=== PATIENT | male | born 1975 ===

== ENCOUNTER 2024-03-02 11:10 | Outpatient (REF) | payer MEDICAID, SELFPAY ==
[2024-03-02 14:44] LABS: Estimated Average Glucose 114 mg/dL; Hemoglobin A1c % 5.6 % (<6.0)
== END 2024-03-02 11:11 | disposition home or self-care (01) ==
LOC: HO.HHCL 11:10
PROVIDERS: Visit Provider Internal Medicine
DX: R73.01 Impaired fasting glucose (principal)
CPT/HCPCS: 36415; 80048; 80061; 82306; 83036; 84443

== ENCOUNTER 2024-03-04 08:40 | Outpatient (REF) | payer MEDICAID, SELFPAY ==
[2024-03-04 12:08] LABS: Anion Gap 8 (12-20); Blood Urea Nitrogen 18 mg/dL (9-16); Calcium 9.3 mg/dL (8.4-10.2); Carbon Dioxide 26 mmol/L (22-29); Chloride 112 mmol/L (96-108); Cholesterol 183 mg/dL (<200); Estimated Glomerular Filt Rate > 60; Glucose Random 104 mg/dL (60-115); HDL Cholesterol 37 mg/dL (>40); LDL Cholesterol Calculated 133 mg/dL (<100); Potassium 4.3 mmol/L (3.3-5.1); Sodium 142 mmol/L (135-145); Triglycerides 69 mg/dL (<150)
[2024-03-04 12:32] LABS: TSH reflex Free T4 1.38 uIU/mL (0.32-4.0); Vitamin D 25-OH Total 24.7 ng/mL (>30)
[2024-03-04 12:53] LABS: Reflex LDLD? No
== END 2024-03-04 08:41 | disposition home or self-care (01) ==
LOC: HO.HHCL 08:40
PROVIDERS: Visit Provider Internal Medicine
DX: I10 Essential (primary) hypertension (principal); R73.01 Impaired fasting glucose
CPT/HCPCS: 36415; 80048; 80061; 82306; 84443

== ENCOUNTER 2024-11-23 08:41 | Outpatient (REF) | payer MEDICAID, SELFPAY ==
--- OUTSIDE RECORDS SUMMARY | 2024-11-23 08:48 | XMS_ITS | Encounter Summary ---
Author Organization [employer] Address [address] [facility] [address] [place] [address] Care Team Providers Care Weed Thinner Name Role Phone Urszula Davis MD Primary Care Provider + Reason for Visit * Reason Comments Med Refill Encounter Details Date Type Department Care Team ([facility] st Contact Info) Description 02/03/2024 Refill [facility] [address] [place], [place] [phone] Urszula Davis MD [address] [place], [place] [phone] Social History Tobacco Use Types Packs/Day Years Used Date Smoking Tobacco: Never Passive Smoke Exposure: Never Smokeless Tobacco: Never Alcohol Use Standard Drinks/Week Comments Never 0 (1 standard drink = 0.6 oz pur e alcohol) Depression Answer Date Recorded Patient Health Questionnaire-9 Score 1 12/09/2023 Patient Health Questionnaire-9 Score 1 12/09/2023 Last PHQ-9: Questionnaire Data Not on file 0 12/09/2023 Housing Stability Answer Date Recorded What is your housing situation today? I have clifford gray 11/28/[address] you li ve. Do you have problems with any of the following? None of the above 11/28/2023 Food Insecurity Answer Date Recorded Within the past 12 months, y ou worried that your food would run out before you got money to buy more: Never True 11/28/2023 Within the past 12 months,th e food you bought just didn't last and you didn't have enough money to get more: Never True Transportation Answer Date Recorded In the past 12 months, has l ack of transportation kept you from medical appts, meetings, work or from getting things needed for daily living? No 11/28/2023 Utilities Answer Date Recorded In the past 12 months, has t he electric, gas, oil or water company threatened to shut off services in your home? No 11/28/2023 Depression Answer Date Recorded Patient Health Questionnaire-2 Score 0 12/09/2023 Sex and Gender Information Value Date Recorded Sex Assigned at Male 04/16/2022 10:32 AM EDT Legal Sex Male 10:32 AM EDT Gender Identity Male 04/16/2022 10:32 AM EDT Sexual Orientation Straight 04/16/2022 10 :32 AM EDT documented as of this encounter Plan of Treatment Upcoming Encounters Date Type Department Care Team (Late st Contact Info) Description 02/08/2025 9:00 AM EDT Office Visit [facility] [address] [place] [address] Urszula Davis MD [address] [place] [address] documented as of this encounter Visit Diagnoses Not on filedocumented in this encounter Additional Health Concerns Assessment Noted Time PHQ-9 Depression Total Score: 1 12/09/19 24 10:23 AM EDT documented as of this encounter Care Teams Weed Thinner Relationship Specialty Start Date End Date Urszula Davis MD [address] [place] [id number] PCP - General Family Medicine 06/04/17 documented as of this encounter
[2024-11-23 12:00] LABS: Alanine Aminotransferase 41 U/L (0-40); Albumin Level 4.3 g/dL (3.5-5.0); Alkaline Phosphatase 98 U/L (39-117); Anion Gap 10 (12-20); Aspartate Amino Transferase 41 U/L (5-37); Bilirubin Direct 0.3 mg/dL (0.0-0.5); Bilirubin Total 0.8 mg/dL (0.0-1.0); Blood Urea Nitrogen 11 mg/dL (9-16); Calcium 9.2 mg/dL (8.4-10.2); Carbon Dioxide 26 mmol/L (22-29); Chloride 110 mmol/L (96-108); Cholesterol 118 mg/dL (<200); Estimated Glomerular Filt Rate > 60; Glucose Random 97 mg/dL (60-115); HDL Cholesterol 32 mg/dL (>40); LDL Cholesterol Calculated 73 mg/dL (<100); Potassium 4.1 mmol/L (3.3-5.1); Sodium 142 mmol/L (135-145); Total Protein 7.7 g/dL (6.5-8.0); Triglycerides 65 mg/dL (<150)
[2024-11-23 12:05] LABS: TSH reflex Free T4 1.32 uIU/mL (0.32-4.0)
[2024-11-23 12:44] LABS: Reflex LDLD? No
== END 2024-11-23 08:42 | disposition home or self-care (01) ==
LOC: HO.HHCL 08:41
PROVIDERS: Visit Provider Internal Medicine
DX: Z68.42 Body mass index [BMI] 45.0-49.9, adult (principal); E66.813 Obesity, class 3; I10 Essential (primary) hypertension
CPT/HCPCS: 36415; 80048; 80061; 80076; 84443

== ENCOUNTER 2025-02-11 10:23 | Outpatient (REF) | payer MEDICAID, SELFPAY ==
--- NOTE | ~2025-02-11 | XR_ITS ---
EXAMINATION: XR LUMBOSACRAL SPINE CLINICAL INFORMATION: worsening LBP COMPARISON: None available. TECHNIQUE: AP and lateral views. FINDINGS: Facet joint hypertrophy at L5-S1 and to a lesser extent L4-5. Multilevel small marginal osteophyte formation and endplate sclerosis throughout the axial skeleton. No acute cortical disruption. No gross malalignment. No lytic or blastic lesions. 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 Electronically signed by: Carlos Milner MD 02/11/2025 10:49 AM EDT
--- OUTSIDE RECORDS SUMMARY | 2025-02-11 09:20 | XMS_ITS | Encounter Summary ---
Author Organization [employer] Address [address] [facility] 7t [place] [address] Care Team Providers Care Building Energy Consultant Name Role Phone Urszula Davis MD Primary Care Provider + Reason for Visit * Reason Comments Back Pain Encounter Details Date Type Department Care Team ([facility] st Contact Info) Description 02/11/2025 9:20 AM EDT Office Visit [facility] [place] [address] [place] [address] Chronic bilateral low back pain with right-sided sciatica (Primary Dx); Chronic bilateral thoracic back pain Social History Tobacco Use Types Packs/Day Years [...] Recorded Patient Health Questionnaire-2 Score 0 12/09/2023 Internet Access Answer Date Recorded Internet Access Q1 Yes 10/20/2024 Internet Access Q2 Not on file 10/20/2024 Sex and Gender Information Value Date Recorded Sex Assigned at Male 04/16/2022 10:32 AM EDT Legal Sex Male 10:32 AM EDT Gender Identity Male 04/16/2022 10:32 AM EDT Sexual Orientation Straight 04/16/2022 10 :32 AM EDT documented as of this encounter Last Filed Vital Signs Vital Sign Reading Time Taken Comments Blood Pressure 148/90 02/11/2025 9:22 AM EDT Pulse 60 02/11/2025 9:22 AM EDT Temperature 36.3 C (97.4 F) 02/11/2025 9:22 AM EDT Respiratory Rate 17 02/11/2025 9:22 AM EDT Oxygen Saturation 99% 02/11/2025 9:22 AM EDT Inhaled Oxygen Concentration - - Weight 140 kg (309 lb 9.6 oz) 02/11/2025 9:22 AM EDT Height - - Body Mass Index 44.42 10/26/2024 2:30 PM EDT documented in this encounter Plan of Treatment Upcoming Encounters Date Type Department Care Team (Late st Contact Info) Description 04/19/2025 9:30 AM EST Office Visit [facility] [address] [place] [address] Octaviano, Danisha, OD [address] [place] [address] documented as of this encounter Procedures Procedure Name Priority Date/Time Associated Diagnosis Comments XR LUMBAR SPINE 2-3 VIEWS Routine 02/11/2025 9:48 AM EDT Chronic bilateral low back pain with right-sided sciatica documented in this encounter Results * XR Lumbar Spine 2-3 Views (02/11/2025 9:48 AM EDT) Anatomical Region Laterality Modality Spine, L-spine Radiographic Marybeth ging 02/11/2025 9:48 AM EDT Narrative 02/11/2025 10:52 AM EDT [address] [address] XRay Report Signed Patient: Gilbert Mendenhall MR# : [id number] : 1975 Acct:[id number] Age/Sex: 49 / M ADM Date: 02/11/25 Loc: [facility] Attending Dr: Aminata Mayorga DO Ordering Physician: Aminata Mayorga DO Date of Service: 02/11/25 Procedure(s): XR lumbar spine 2-3V Accession Number(s): [id number] cc: Aminata Mayorga DO EXAMINATION: XR LUMBOSACRAL SPINE CLINICAL INFORMATION: worsening LBP COMPARISON: None available. TECHNIQUE: AP and lateral views. FINDINGS: Facet joint hypertrophy at L5-S1 and to a lesser extent L4-5. Multilevel small marginal osteophyte formation and endplate sclerosis throughout the axial skeleton. No acute cortical disruption. No gross malalignment. No lytic or blastic lesions. 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 Electronically signed by: Carlos Milner MD 02/11/2025 10:49 AM EDT Dictated By: Carlos Rodriguez MD Signed By: <Electronically signed by Carlos Real MD in OV> 02/11/25 1049 DD/ 0948 TD/TT: 02/11/25 1000 Newspaper Manager: Procedure Note Donotuseinterpreter, Image - 02/11/2025 [facility] [address] [place] [address] XRay Report Signed Patient: Nabil MendenhalloMR# : [id number] : 1975Acct:[id number] Age/Sex: 49 / MADM Date: 02/11/25 Loc: [facility] Attending Dr: Aminata Mayorga DO Ordering Physician: Aminata Mayorga DO Date of Service: 02/11/25 Procedure(s): XR lumbar spine 2-3V Accession Number(s): [id number] cc: Aminata Mayorga DO EXAMINATION: XR LUMBOSACRAL SPINE CLINICAL INFORMATION: worsening LBP COMPARISON: None available. TECHNIQUE: AP and lateral views. FINDINGS: Facet joint hypertrophy at L5-S1 and to a lesser extent L4-5. Multilevel small marginal osteophyte formation and endplate sclerosis throughout the axial skeleton. No acute cortical disruption. No gross malalignment. No lytic or blastic lesions. 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 Electronically signed by: Carlos Milner MD 02/11/2025 10:49 AM EDT RP Dictated By: Carlos Rodriguez MD Signed By: <Electronically signed by Carlos Real MDin OV> 02/11/25 1049 DD/ 0948 TD/TT: 02/11/25 1000 Newspaper Manager: Aminata Mayorga DO IMG XR PROCEDURES Final Resu lt documented in this encounter Visit Diagnoses Diagnosis Chronic bilateral low back pain with right-sided sciatica- Primary Chronic bilateral thoracic back pain documented in this encounter Additional Health Concerns Assessment Noted Time PHQ-9 Depression Total Score: 1 12/09/19 24 10:23 AM EDT documented as of this encounter Care Teams Building Energy Consultant Relationship Specialty Start Date End Date Urszula Davis MD [address] [place] [phone] PCP - General Family Medicine 06/04/17 documented as of this encounter
--- OUTSIDE RECORDS SUMMARY | 2025-02-11 11:43 | XMS_ITS | Encounter Summary ---
Author Organization [employer] Address [address] [facility] 7[address] [place] [address] Care Team Providers Care Software Development Intern Name Role Phone Urszula Davis MD Primary Care Provider + Reason for Visit * Reason Onset Date Comments Med Refill 05/18/2024 Encounter Details Date Type Department Care Team ([facility] st Contact Info) Description 05/18/2024 Telephone [facility] [address] [place], [place] [phone] Urszula Davis MD 230 [place], [place] [phone] Med Refill Social History Tobacco Use Types Packs/Day Years [...] AM EDT documented as of this encounter Miscellaneous Notes * Telephone Encounter - Aminata Moe LPN - 05/18/2024 11:21 AM EST Medication was sent to [facility] #[id number] on 02/18/24 #90 with 1 refill. * Telephone Encounter - Nona Fry - 05/18/2024 11:08 AM EST TC from pt requesting medication refill. Medications needing refill : amLODIPine (Norvasc) 5 MG tablet To be sent to: [id number] - [place], [place] - [address] [place] [address] AT [facility] documented in this encounter Plan of Treatment Upcoming Encounters Date Type Department Care Team (Late st Contact Info) Description 04/19/2025 9:30 AM EST Office Visit [facility] [address] [place] [address] Danisha Brumfield, OD [address] [place] [address] documented as of this encounter Visit Diagnoses Not on filedocumented in this encounter Additional Health Concerns Assessment Noted Time PHQ-9 Depression Total Score: 1 12/09/19 10:23 AM EDT documented as of this encounter Care Teams Software Development Intern Relationship Specialty Start Date End Date Urszula Davis MD [address] [place] [phone] PCP - General Family Medicine 06/04/17 documented as of this encounter
--- OUTSIDE RECORDS SUMMARY | 2025-02-11 11:43 | XMS_ITS | Encounter Summary ---
Author Organization [employer] Address [address] [facility] 7[address] [place] [address] Care Team Providers Care Kiln Furniture Saw Tender Name Role Phone Urszula Davis MD Primary Care Provider + Encounter Details Date Type Department Care Team (Latest Contact Info) Description 02/11/2025 Travel Social History Tobacco Use Types Packs/Day Years [...] Description 04/19/2025 9:30 AM EST Office Visit [facility] [address] [place] [address] Octaviano, Danisha, OD [address] [place] [address] documented as of this encounter Visit Diagnoses Not on filedocumented in this encounter Additional Health Concerns Assessment Noted Time PHQ-9 Depression Total Score: 1 12/09/19 24 10:23 AM EDT documented as of this encounter Care Teams Kiln Furniture Saw Tender Relationship Specialty Start Date End Date Urszula Davis MD [address] [place] [address] PCP - General Family Medicine 06/04/17 documented as of this encounter
--- OUTSIDE RECORDS SUMMARY | 2025-02-11 11:43 | XMS_ITS | Encounter Summary ---
Author Organization [employer] Address [address] [facility] 7t [place] [address] Care Team Providers Care Ventilation Mechanic Name Role Phone Urszula Davis MD Primary Care Provider + Reason for Visit * Reason Comments Med Refill Encounter Details Date Type Department Care Team ([facility] st Contact Info) Description 02/08/2025 Refill [facility] [address] [place], [place] [phone] Urszula Davis MD [address] [place], [place] [phone] Social History Tobacco Use Types Packs/Day Years [...] Description 04/19/2025 9:30 AM EST Office Visit [facility] [address] [place] [address] Octaviano, Danisha, OD [address] [place] [address] documented as of this encounter Visit Diagnoses Not on filedocumented in this encounter Additional Health Concerns Assessment Noted Time PHQ-9 Depression Total Score: 1 12/09/19 24 10:23 AM EDT documented as of this encounter Care Teams Ventilation Mechanic Relationship Specialty Start Date End Date Urszula Davis MD [address] [place] [address] PCP - General Family Medicine 06/04/17 documented as of this encounter
--- OUTSIDE RECORDS SUMMARY | 2025-02-11 11:43 | XMS_ITS | Clinical Summary ---
Author Organization [employer] Address [address] [facility] [address] [place] [address] Care Team Providers Care File Machine Operator Name Role Phone Urszula Davis MD Primary Care Provider + Allergies No known active allergies Medications cetirizine (ZyrTEC) 10 MG tablet Take 10 mg by mouth in the morning. 09/27/19 23 Active fluticasone (Flonase) 50 MCG/ACT nasal spray SHAKE LIQUID AND USE 1 TO 2 SPRAYS IN EACH NOSTRIL EVERY DAY NEEDED 48 g 02/16/20 23 Active ciclopirox (Penlac) 8 % solution Apply topically at bedtime. 6 mL 6 03/02/20 24 Active atorvastatin (Lipitor) 20 MG tablet Take 1 tablet (20 mg) by mouth Once per day. 90 tablet 3 03/13/20 24 025 Active omeprazole (PriLOSEC) [address] capsule TAKE 1 CAPSULE BY MOUTH EVERY DAY 30 MINUTES TO 1 HOUR BEFORE A MEAL 90 capsule 1 09/22/19 25 Active oxybutynin XL (Ditropan-XL) 5 MG 24 hr tablet TAKE 1 TABLET BY MOUTH EVERY DAY 90 tablet 1 09/22/19 25 Active Diclofenac Sodium 1 % gelIndications :Chronic bilateral thoracic back pain APPLY TOPICALLY TO THE AFFECTED AREA DAILY EVERY MORNING AND EVERY NIGHT AT BEDTIME NEEDED 100 g 12/24/19 25 Active clotrimazole-b etamethasone (Lotrisone) cream APPLY TOPICALLY TO THE AFFECTED AREA TWICE DAILY 30 g 12/24/19 25 Active metFORMIN XR (Glucophage-XR ) 750 MG 24 hr tablet TAKE 1 TABLET(750 MG) BY MOUTH WITH THE EVENING MEAL. DO NOT CRUSH, CHEW, OR SPLIT 90 tablet 12/25/19 25 Active amLODIPine (Norvasc) 5 MG tablet TAKE 1 TABLET BY MOUTH EVERY DAY 90 tablet 1 02/11/20 25 Active amLODIPine (Norvasc) 5 MG tablet TAKE 1 TABLET BY MOUTH EVERY DAY 90 tablet 1 08/18/19 25 025 Discontinued Active Problems Problem Noted Date Diagnosed Date Tinea of nail 12/09/2023 Assessment & Plan (03/02/2024 10:42 AM EDT): - on fingernails, seems to be improving on Penlac - continue Penlac to complete 6 months Assessment & Plan (12/09/2023 11:04 AM EDT): Use Penlac lotion daily for at least 3-6m Eczema of hand 12/09/2023 Assessment & Plan (12/09/2023 11:05 AM EDT): Seems to have fungal infection at times when exposed to humidity at work, Wear gloves when in contacts with detergents or other substances. Use lotrisone cream bid May need stronger steroid if not improved, Class 3 severe obesity due t o excess calories with serious comorbidity and body mass index (BMI) of 45.0 to 49.9 in adult 12/09/2023 Assessment & Plan (10/26/2024 4:43 PM EDT): Discussed re weight reduction options including exercise, life style modifications, diet. Recommended to decrease soda and sugary beverage consumption, increase protein intake with meals (at least 1 portion of protein with each meal) to assist with satiety, increase dietary fiber Recommended at least 150 min/week of moderate intensity exercise. Will send a referral to dietitian Advised to use metformin daily, will consider GLP's after he sees dietitian if he does not continue to lose significant amount of weight Assessment & Plan (03/02/2024 10:35 AM EDT): - will increase Metformin to 750 mg per day and f/u in 3 months - gave pt information about weight reduction programs in the area - may be a candidate for Glp-1 meds Assessment & Plan (12/09/2023 1:50 PM EDT): Discussed re weight reduction options including exercise, life style modifications, diet, referral to ehs specialist. She declines referral at this time Discussed re lower calorie intake, increase dietary fiber We discussed re medications including metformin, topiramate, wellbutrin or GLP1 agonists. He agreed to start metformin. Chronic bilateral thoracic back pain 04/15/2023 Assessment & Plan (04/15/2023 10:08 AM EDT): Most likely muscular. Igave Him info re Back pain, apply heat to afected area, use tylenol or Ibuprofen prn. Can use Diclofenac gel bid prn severe pain Re consult prn Encounter for colorectal cancer screening 2022 Tinea pedis of both feet 08/13/2022 Assessment & Plan (03/02/2024 12:02 PM EDT): - worsened by eczema - use Lotrisone cream - advised to use Desitin ointment on top of the cream - favor using cotton socks Assessment & Plan (08/13/2022 10:19 AM EST): Use clotrimazole cream PRN Encounter for preventive health examination 07/19 Assessment & Plan (08/13/2022 10:17 AM EST): Discussed with patient re increase fresh fruit and vegetable intake. Counseled re moderate exercise as tolerated, up to 20min/d Patient feels safe at home. Eye exam PT up to date, next one due October 2022, pt will call to schedule upcoming appointment. CRC screen Pt agreed to be referred to colonoscopy Lipids/FBS Labs are ordered, FU in 4 weeks. Vaccinations agreed to Tdap. Declined influenza and Covid booster Dental visit: Pt to schedule appointment with the dentist. Exercise counseling 08/13/2022 Dietary counseling 08/13/2022 Assessment & Plan (09/24/2022 10:50 AM EDT): Pt would like to lose weight. I gave him information regarding weight reduction program Benign prostatic hyperplasia with urinary obstru ction 08/10/2022 Assessment & Plan (08/13/2022 10:26 AM EST): Pt with intermittent obstructive symptoms, followed by every year. Continue oxybutynin 5 mg for urinary incontinence. Essential hypertension 08/10/2022 Assessment & Plan (10/26/2024 4:41 PM EDT): Better control, continue amlodipine 5 mg. I counseled regarding low-salt diet, weight reduction Will consider to DC amlodipine and switch to another med patient if he continues with leg edema Assessment & Plan (03/02/2024 10:42 AM EDT): - uncontrolled, will continue Amlodipine 5 mg for now - strongly advised about weight reduction - increase exercise and f/u with me in 3-4 months - get labs Assessment & Plan (12/09/2023 11:04 AM EDT): Controlled. Compliant w/meds Continue amlodipine 5mg Counseled re low salt diet/increase moderate physical activity. Check home BP BIW and prn CP/PERKINS/ROSENBERG Non smoking patient. Order labs and fu w me in 3m Assessment & Plan (04/15/2023 10:07 AM EDT): Controlled. Compliant w/meds Continue amlodipine 5mg Counseled re low salt diet/increase moderate physical activity. Check home BP BIW and prn CP/PERKINS/ROSENBERG Non smoking patient. Assessment & Plan (09/24/2022 10:49 AM EDT): BP is at goal Continue amlodipine Counseled re low salt diet/increase moderate physical activity. Check home BP BIW and prn CP/PERKINS/ROSENBERG Non smoking patient. Assessment & Plan (08/13/2022 10:22 AM EST): PT noncompliant with amlodipine. Pt agreed to restart amlodipine 5mg and FU with me with labs in 1 month Counseled re low salt diet/increase moderate physical activity. Check home BP BIW and prn CP/PERKINS/ROSENBERG Non smoking patient. Numbness of hand 08/10/2022 Pain in left arm 08/10/2022 Elevated blood-pressure read ing without diagnosis of hypertension 06/28/2017 IFG (impaired fasting glucose) 06/28/2017 Assessment & Plan (10/26/2024 4:42 PM EDT): We discussed about taking metformin daily will check He agreed to refer to dietitian especially for weight reduction Will check A1c at next visit I have discussed with patient regarding increasing physicial activity and decrease calorie intake FU in 3 m Assessment & Plan (03/02/2024 10:44 AM EDT): I have discussed with patient regarding increasing physicial activity and decrease calorie intake I'll check FBS with next set of labs. To check RBS at next visit. FU with me next visit Will increase Metformin to 750 mg that will also help with weight reduction Assessment & Plan (12/09/2023 1:48 PM EDT): Improved. Encouraged patient to decrease meal portion size, decrease carb intake and increase physical activity. I will start him on Metformin to help with obesity and fu in 2-3m. I d/w him re potential side effects including nausea, diarrhea, dizziness. Assessment & Plan (08/13/2022 10:27 AM EST): A1C is at goal. I have discussed with patient regarding increasing physicial activity and decrease calorie intake I'll check FBS with next set of labs. To check RBS at next visit. FU with me next visit. FU labs every 6 months. Obstructive sleep apnea syndrome 06/28/2017 Assessment & Plan (12/09/2023 11:03 AM EDT): Doesn't want to use CPAP. We discussed re consequences of untreated sleep apnea. He decided to fu for less invasive therapies. We discussed re weight reduction, refer to sleep specialist Assessment & Plan (04/15/2023 10:07 AM EDT): Not using CPAP at this time. Not interested on trying new machines. Sleep study done 5-6y ago We discussed re risk sof untreated sleep apnea including CV complications. FU prn Assessment & Plan (08/13/2022 10:22 AM EST): He was diagnosed more than 5 years ago, never used CPAP. Pt not willing to use CPAP at this time, we discussed about senior care consequences of untreated sleep apnea. FU at next appointment, counseled regarding weight reduction. Sinusitis 06/28/2017 Visual impairment 06/28/2017 Encounters Date Type Department Care Team Description 02/11/2025 9:20 AM EDT Office Visit [facility] [address] [place] [address] Chronic bilateral low back pain with right-sided sciatica (Primary Dx); Chronic bilateral thoracic back pain 02/11/2025 Travel 02/10/2025 Telephone [facility] [address] [place] [address] Urszula Davis MD Nurse Triage 02/08/2025 Refill [facility] [address] [place] [address] Urszula Davis MD 12/23/2024 Refill [facility] [address] [place] [address] Urszula Davis MD 12/22/2024 Refill [facility] [address] [place] [address] Urszula Davis MD Chronic bilateral thoracic back pain 12/22/2024 Refill [facility] [address] [place] [address] [facility] 11/24/2024 Telephone [facility] [address] [place] [address] Urszula Davis MD Appointment Request 11/11/2024 Refill [facility] [address] [place] [address] Urszula Davis MD from Last 3 Months Immunizations Immunization Administration Dates Next Due Alberto SARS-CoV-2 Vaccination 08/31/2020 Tdap 08/13/2022 Family History Medical History Relation Name Comments Coronary artery disease Father Diabetes Father Diabetes Mother Hypertension Mother Relation Name Status Comments Father Mother Social History Tobacco Use Types Packs/Day Years Used Date Smoking Tobacco: Never Passive Smoke Exposure: Never Smokeless Tobacco: Never Tobacco Cessation:Counseling Given: Not Answered Alcohol Use Standard Drinks/Week Comments Never 0 [...] Orientation Straight 04/16/2022 10 :32 AM EDT Last Filed Vital Signs Vital Sign Reading Time Taken Comments Blood Pressure 148/90 02/11/2025 9:22 AM EDT Pulse 60 02/11/2025 9:22 AM EDT Temperature 36.3 C (97.4 F) 02/11/2025 9:22 AM EDT Respiratory Rate 17 02/11/2025 9:22 AM EDT Oxygen Saturation 99% 02/11/2025 9:22 AM EDT Inhaled Oxygen Concentration - - Weight 140 kg (309 lb 9.6 oz) 02/11/2025 9:22 AM EDT Height 177.8 cm (5' 10 ) 10/26/2024 2:30 PM EDT Body Mass Index 44.42 10/26/2024 2:30 PM EDT Plan of Treatment Upcoming Encounters Date Type Department Care Team (Late st Contact Info) Description 04/19/2025 9:30 AM EST Office Visit [facility] [address] [place] [address] Danisha Brumfield, OD [address] [place] [address] Health Maintenance Due Date Last Done Comments CT Colonography 1975 Colonoscopy 1975 Colorectal Cancer Screening 1975 FIT DNA/Cologuard 1975 FIT 1975 FOBT 1975 Sigmoidoscopy 1975 Disability Screening 1975 Alcohol/Substance Use Screening 1987 Family Planning (PISQ) 1990 Hepatitis B Vaccines (1 of 3 - 19+ 3-dose series) 1994 COVID-19 Vaccine (2 - season) 2024 08/31/2020 Depression Screening 12/08/2024 12/09/2023, 12/09/19 24 Influenza Vaccine (#1) 2025 Zoster Vaccines (1 of 2) 2025 SDOH Screening 10/20/2025 10/20/2024 Tobacco Screening 10/26/2025 10/26/2024 Lipid Panel 11/23/2029 11/23/2024, 02/15, 09/03/2022, Additional history exists DTaP/Tdap/Td Vaccines (2 - Td or Tdap) 08/13/2032 08/13/2022 RSV Patients and Patients Aged 60 years or older (1 - 1-dose 75+ series) 2050 HIV Screening Completed 09/03/2022 Hepatitis C Screening Completed 09/03/2022 HIB Vaccines Aged Out No longer eligi ble based on patient's age to complete this topic HPV Vaccines Aged Out No longer eligi ble based on patient's age to complete this topic Hepatitis A Vaccines Aged Out No long er eligible based on patient's age to complete this topic IPV Vaccines Aged Out No longer eligi ble based on patient's age to complete this topic Meningococcal B Vaccine Aged Out No l onger eligible based on patient's age to complete this topic Meningococcal Vaccine Aged Out No darryl sly eligible based on patient's age to complete this topic Pneumococcal Vaccine: Pediatrics (0 to 5 Years) and At-Risk Patients (6 to 49) Years Aged Out No longer eligible based on patient's age to complete this topic RSV under 20 months Aged Out No longe r eligible based on patient's age to complete this topic Rotavirus Vaccines Aged Out No longer eligible based on patient's age to complete this topic Procedures Procedure Name Priority Date/Time Associated Diagnosis Comments XR LUMBAR SPINE 2-3 VIEWS Routine 02/11/2025 9:48 AM EDT Chronic bilateral low back pain with right-sided sciatica HEPATIC FUNCTION PANEL Routine 11/23/2024 8:45 AM EDT Class 3 severe obesity due to excess calories with serious comorbidity and body mass index (BMI) of 45.0 to 49.9 in adult TSH W/REFLEX TO FT4 Routine 11/23/2024 8 :45 AM EDT Class 3 severe obesity due to excess calories with serious comorbidity and body mass index (BMI) of 45.0 to 49.9 in adult LIPID PANEL WITH REFLEX TO DIRECT LDL Routine 11/23/2024 8:45 AM EDT Essential hypertension BASIC METABOLIC PANEL Routine 11/23/2024 8:45 AM EDT Essential hypertension HEPATITIS PANEL, GENERAL Routine 09/03/2022 8:11 AM EDT Encounter for preventive health examination HIV 1/2 ANTIGEN/ANTIBODY, FOURTH GENERATION W/RFL Routine 09/03/2022 8:11 AM EDT Encounter for preventive health examination from Last 3 Months or Most Recently Relevant to Health Maintenance Results * XR Lumbar Spine 2-3 Views (02/11/2025 9:48 AM EDT) Anatomical Region Laterality Modality Spine, L-spine Radiographic Marybeth ging 02/11/2025 9:48 AM EDT Narrative 02/11/2025 10:52 AM EDT [address] [address] XRay Report Signed Patient: Gilbert Mendenhall MR# : [id number] : 1975 Acct:[id number] Age/Sex: 49 / M ADM Date: 02/11/25 Loc: [facility] Attending Dr: Aminata Mayorga DO Ordering Physician: Aminata Mayorga DO Date of Service: 02/11/25 Procedure(s): XR lumbar spine 2-3V Accession Number(s): [id number] cc: Aminata Mayorga DO EXAMINATION: XR LUMBOSACRAL [...] 02/11/25 1049 DD/ 0948 TD/TT: 02/11/25 1000 [employer] Metallurgist: Procedure Note Donotuseinterpreter, Image - 02/11/[address] [address] XRay Report Signed Patient: Nabil MendenhalloMR# : [id number] : 1975Acct:[id number] Age/Sex: 49 / MADM Date: 02/11/25 Loc: [facility] Attending Dr: Aminata Mayorga DO Ordering Physician: Aminata Mayorga DO Date of Service: 02/11/25 Procedure(s): XR lumbar spine 2-3V Accession Number(s): [id number] cc: Aminata Mayorga DO EXAMINATION: XR LUMBOSACRAL [...] 02/11/25 1049 DD/ 0948 TD/TT: 02/11/25 1000 Foundry Metallurgist: us Aminata Mayorga DO IMG XR PROCEDURES Final Resu lt * TSH with Reflex to Free T4 (11/23/2024 8:45 AM EDT) TSH reflex Free T4 1.32 0.32 - 4.0 uIU/mL [facility] Blood 11/23/2024 8:45 AM EDT 11/23/2024 11:11 AM EDT us Urszula Davis MD LAB BLOOD ORDERABLES Fin al Result [facility] [address] [place] [phone] * (ABNORMAL) Lipid Panel with Reflex to Direct LDL (11/23/2024 8:45 AM EDT) Triglycerides 65 <150 mg/dL [facility] Comment:Desirable Triglyceri de: less than 150 mg/dLBorderline High Triglyceride 150-199 mg/dLHigh Triglyceride: 200-499 mg/dLVery High Triglyceride: greater than or equal to 5OO mg/dL Cholesterol 118 <200 mg/dL [facility] Comment:Desirable Cholestero l: less than 200 mg/dLBorderline High Cholesterol: 200-239 mg/dLHigh Cholesterol: greater than 239 mg/dL LDL Cholesterol Calculated 73 <100 mg/dL [facility] Comment:Desirable LDL: less than 100 mg/dLNear Optimal/Above Optimal LDL: 110- 129 mg/dLBorderline High LDL: 130-159 mg/dLHigh LDL: 160-189 mg/dLVery High LDL: greater than or equal to 190 mg/dL HDL Cholesterol 32(L) >40 mg/dL [facility] Comment:Desirable HDL: great er than 40 mg/dL Note: This HDL assay may give artificially low results in patients with liver disease. Blood 11/23/2024 8:45 AM EDT 11/23/2024 11:11 AM EDT us Urszula Davis MD LAB BLOOD ORDERABLES Fin al Result [facility] [address] [place] [phone] * (ABNORMAL) Hepatic Function Panel (11/23/2024 8:45 AM EDT) Bilirubin, Total 0.8 0.0 - 1.0 mg/dL [facility] Bilirubin, Direct 0.3 0.0 - 0.5 mg/dL [facility] Aspartate Amino Transferase 41(H) 5 - 37 U/L [facility] Alanine Aminotransferase 41(H) 0 - 40 U/L [facility] Total Protein 7.7 6.5 - 8.0 g/dL [facility] Albumin Level 4.3 3.5 - 5.0 g/dL [facility] Alkaline Phosphatase 98 39 - 117 U/L [facility] Blood Venous blood specimen / Unknown 11/23/2024 8:45 AM EDT 11/23/2024 11:11 AM EDT us Urszula Davis MD LAB BLOOD ORDERABLES Fin al Result Performing Organization Address [facility]/ZIP Co de Phone Number [facility] [address] [place] [phone] * (ABNORMAL) Basic Metabolic Panel (11/23/2024 8:45 AM EDT) Sodium 142 135 - 145 mmol/L [facility] Potassium 4.1 3.3 - 5.1 mmol/L [facility] Chloride 110(H) 96 - 108 mmol/L [facility] Carbon Dioxide 26 22 - 29 mmol/L [facility] Anion Gap 10(L) 12 - 20 [facility] Urea Nitrogen (BUN) 11 9 - 16 mg/dL [facility] Creatinine, Serum 0.94 0.5 - 1.4 mg/dL [facility] Estimated Glomerular Filt Rate >60 [facility] Comment:Chronic Kidney Disea se: Estimated GFR < 60 mL/min/1.67g8Fzotfc Kidney Disease: Estimated GFR < 15 mL/min/1.73m2 Glucose 97 60 - 115 mg/dL [facility] Calcium 9.2 8.4 - 10.2 mg/dL [facility] Blood Venous blood specimen / Unknown 11/23/2024 8:45 AM EDT 11/23/2024 11:11 AM EDT us Urszula Davis MD LAB BLOOD ORDERABLES Fin al Result Performing Organization Address City/[facility]/ZIP Co de Phone Number [facility] [address] [place] [address] [phone] * (ABNORMAL) Hepatitis Panel, General (09/03/2022 8:11 AM EDT) Hepatitis A Antibody Total REACTIVE( A) NON-REACT [facility] Comment: For additional information, please refer to http://[employer]/faq/XJU044 (This link is being provided for informational/ educational purposes only.) Hepatitis B Surface Antibody QL REACTIVE( A) NON-REACT OZ [facility] [employer] [facility] Hepatitis B Surface Ag NON-REACT OZ NON-REACT OZ [facility] Hepatitis B Core Antibody Total NON-REACT OZ NON-REACT OZ [facility] Hepatitis C Antibody NON-REACT OZ NON-REACT [facility]Z [facility] Index 0.10 <1.00 [facility] Comment: HCV antibody was non-reactive. There is no laboratory evidence of HCV infection. In most cases, no further action is required. However, if recent HCV exposure is suspected, a test for HCV RNA (test code 99937) is suggested. For additional information please refer to http://[employer] [facility]/faq/XYV32c9 (This link is being provided for informational/ educational purposes only.) 09/03/2022 8:11 AM EDT 09/03/2022 8:12 AM EDT Narrative [facility] - 09/07/2022 8:32 PM EDT FASTING:YES FASTING: YES Urszula Davis MD LAB BLOOD ORDERABLES Fin al Result [facility] [address], [place] [phone] [facility] [address] [place] [phone] * HIV-1/2 Antigen and Antibodies, Fourth Generation, with Reflexes (09/03/2022 8:11 AM EDT) HIV Antigen/Antibody, 4th Generation NON-REAC TIVE NON-REAC TIVE [facility] Comment: HIV-1 antigen and HIV-1/HIV-2 antibodies were not detected. There is no laboratory evidence of HIV infection. PLEASE NOTE: This information has been disclosed to you from records whose confidentiality may be protected by state law. If your state requires such protection, then the state law prohibits you from making any further disclosure of the information without the specific written consent of the person to whom it pertains, or as otherwise permitted by law. A general authorization for the release of medical or other information is NOT sufficient for this purpose. For additional information please refer to http://education[employer]/faq/BXK911 (This link is being provided for informational/ educational purposes only.) The performance of this assay has not been clinically validated in patients less than 2 years old. Blood Venous blood specimen / Unknown 09/03/2022 8:11 AM EDT 09/03/2022 8:12 AM EDT Narrative [facility] - 09/07/2022 8:32 PM EDT FASTING:YES FASTING: YES Urszula Davis MD LAB BLOOD ORDERABLES Fin al Result [facility] [address], [place] [phone] [facility] [address] [place] [phone] from Last 3 Months or Most Recently Relevant to Health Maintenance Insurance [facility] C3 Care Teams File Machine Operator Relationship Specialty Start Date End Date Urszula Davis MD [address] [place] [phone] PCP - General Family Medicine 06/04/17
--- OUTSIDE RECORDS SUMMARY | 2025-02-11 11:43 | XMS_ITS | Encounter Summary ---
Author Organization [employer] Address [address] [facility] [address] [place] [address] Care Team Providers Care Freight Car Cleaner Name Role Phone Urszula Davis MD Primary Care Provider + Encounter Details Date Type Department Care Team (Late Contact Info) Description 09/06/2022 Orders Only [facility] [address] [place] [address] Urszula Davis MD [address] [place], [place] [phone] Social History Tobacco Use Types Packs/Day Years Used Date Smoking Tobacco: Never Smokeless Tobacco: Never Alcohol Use Standard Drinks/Week Comments Never 0 (1 standard drink = 0.6 oz pur e alcohol) Sex and Gender Information Value Date Recorded Sex Assigned at Male 04/16/2022 10:32 AM EDT Legal Sex Male 10:32 AM EDT Gender Identity Male 04/16/2022 10:32 AM EDT Sexual Orientation Straight 04/16/2022 10 :32 AM EDT COVID-19 Exposure Response Date Recorded In the last 10 days, have yo u been in contact with someone who was confirmed or suspected to have Coronavirus/COVID-19? No / Unsure 08/13/2022 9:20 AM EST documented as of this encounter Plan of Treatment Upcoming Encounters Date Type Department Care Team (Late Contact Info) Description 04/19/2025 9:30 AM EST Office Visit [facility] [address] [place] [address] Octaviano, Danisha, OD [address] [place] [address] documented as of this encounter Visit Diagnoses Not on filedocumented in this encounter Care Teams Freight Car Cleaner Relationship Specialty Start Date End Date Urszula Davis MD [address] [place] [phone] PCP - General Family Medicine 06/04/17 documented as of this encounter
--- OUTSIDE RECORDS SUMMARY | 2025-02-11 11:43 | XMS_ITS | Encounter Summary ---
Author Organization [employer] Address [address] [facility] [address] [place] [address] Care Team Providers Care Coal Miner Name Role Phone Urszula Davis MD Primary Care Provider + Reason for Visit * Reason Comments Med Refill Encounter Details Date Type Department Care Team ([facility] st Contact Info) Description 02/03/2024 Refill [facility] MEDICINE [address] [place], [place] [phone] Urszual Davis MD [address] [place], [place] [phone] Social History Tobacco Use Types Packs/Day Years [...] Description 04/19/2025 9:30 AM EST Office Visit [facility] OPTOMETRY [address] [place], [place] [phone] Octaviano, Danisha, OD [address] [place] [address] documented as of this encounter Visit Diagnoses Not on filedocumented in this encounter Additional Health Concerns Assessment Noted Time PHQ-9 Depression Total Score: 1 12/09/19 24 10:23 AM EDT documented as of this encounter Care Teams Coal Miner Relationship Specialty Start Date End Date Urszula Davis MD [address] [place] [address] PCP - General Family Medicine 06/04/17 documented as of this encounter
--- OUTSIDE RECORDS SUMMARY | 2025-02-11 11:43 | XMS_ITS | Clinical Summary ---
Author Organization [facility] Address [address] [place] [address] Care Team Providers Care Geophysics Teacher Name Role Phone Gayatri Duncan PA-C Primary Care Provider [phone] Source Comments PLEASE NOTE, if this patient is a minor, it may be UNLAWFUL to discuss sensitive information that is contained in these records (such as FAMILY PLANNING, MENTAL HEALTH or SUBSTANCE ABUSE) with the minor patient's parent or other person without the patient's specific authorization.[facility] Allergies No known active allergies Medications loratadine (CLARITIN) 10 mg tabletIndication s:Allergic rhinitis, unspecified allergic rhinitis trigger, unspecified rhinitis seasonality Take 1 Tab by mouth once daily as needed for allergies 30 Tab 4 7 Active fluticasone (FLONASE) 50 mcg/actuation nasal sprayIndications :Allergic rhinitis, unspecified allergic rhinitis trigger, unspecified rhinitis seasonality Place 1 Harris in both nostrils once daily 16 g 2 7 Active ketoconazole (NIZORAL) 2 % creamIndications :Tinea corporis Apply topically once daily 30 g 1 7 Active cholecalciferol, vitamin D3, 2,000 unit capsuleIndicatio ns:Vitamin D deficiency Take 1 Cap by mouth once daily Take 1 pill daily. 90 Cap 3 7 Active naproxen (NAPROSYN) 500 mg tabletIndication s:Bilateral occipital neuralgia Take 1 Tab by mouth 2 (two) times daily with a meal 60 Tab 1 7 Active meclizine (ANTIVERT) 25 mg tabletIndication s:BPPV (benign paroxysmal positional vertigo), left Take 1 Tab by mouth 2 (two) times daily as needed for nausea 60 Tab 1 7 Active oxybutynin (DITROPAN-XL) 5 mg 24 hr tabletIndication s:Overactive bladder Take 5 mg by mouth nightly at bedtime PER UROLOGY 7 Active omeprazole (PRILOSEC) [address] capsuleIndicatio ns:Gastroesophag eal reflux disease, esophagitis presence not specified Take 1 Cap by mouth every morning before breakfast Do not crush or chew. 30 Cap 2 7 Active Active Problems Problem Noted Date Diagnosed Date BPH without obstruction/lower urinary tract symp toms 12/09/2016 Overview (12/09/2016): F/u urology Headache, occipital 11/11/2016 Neck pain, bilateral posterior 11/11/2016 Overview (11/11/2016): X-rays cervical spine 11/07/16 at [facility] = straightening cervical lordosis consistent with muscle spasm GERD (gastroesophageal reflux disease) 7 Overactive bladder 11/07/2016 Overview (11/07/2016): F/U UROLOGY HTN (hypertension)- diet controlled 10/04/2016 Allergic rhinitis 10/04/2016 Vitamin D deficiency 07/09/2016 Morbid obesity with BMI of 45.0-49.9, adult ([facility]) 07/04/2016 Family History Medical History Relation Name Comments Diabetes Father Heart Problems Father Hypertension Father Kidney disease Father Diabetes Mother Relation Name Status Comments Father (Age 73) kidney iss ues Mother Alive Social History Tobacco Use Types Packs/Day Years Used Date Smoking Tobacco: Never Smokeless Tobacco: Never Alcohol Use Standard Drinks/Week Comments Yes 0 (1 standard drink = 0.6 oz pur e alcohol) special occasions Social Connections Answer Date Recorded Social Connections and Isolation 0 02/07/2019 Financial Resource Strain Answer Date R ecorded Financial Resource Strain 0 2018 Stress Answer Date Recorded Stress 0 02/07/2019 Physical Activity Answer Date Recorded Physical Activity 0 02/07/2019 Food Insecurity Answer Date Recorded Food 0 02/07/2019 Transportation Needs Answer Date Record ed Transportation 0 02/07/2019 Housing Stability Answer Date Recorded Housing 0 02/07/2019 Safety and Environment Answer Date Sb rded Safety 0 02/07/2019 Utilities Answer Date Recorded Utilities 0 02/07/2019 Employment Answer Date Recorded Employment 0 02/07/2019 Sex and Gender Information Value Date Recorded Sex Assigned at Not on file Legal Sex Male 5:50 AM PDT Gender Identity Not on file Sexual Orientation Not on file Occupation Industry Job Start Date Job End Date [employer] Not on file Not on file Not on file Last Filed Vital Signs Vital Sign Reading Time Taken Comments Blood Pressure 122/82 11/07/2016 10:26 AM EDT Pulse 60 11/07/2016 10:26 AM EDT Temperature 36.6 C (97.9 F) 11/07/2016 10:26 AM EDT Respiratory Rate 20 11/07/2016 10:26 AM EDT Oxygen Saturation - - Inhaled Oxygen Concentration - - Weight 140.6 kg (310 lb) 11/07/2016 10:26 AM EDT Height 175.3 cm (5' 9 ) 11/07/2016 10:26 AM EDT Body Mass Index 45.78 11/07/2016 10:26 AM EDT Plan of Treatment Not on file Insurance [employer] Care Teams Geophysics Teacher Relationship Specialty Start Date End Date Gayatri Duncan PA-C [address] [place] [address] PCP - General 08/12/18
--- OUTSIDE RECORDS SUMMARY | 2025-02-11 11:43 | XMS_ITS | Encounter Summary ---
Author Organization [email or web address] Address [address] [facility] 7[address] [place] [address] Care Team Providers Care Radiographer Mammographer Name Role Phone Urszula Davis MD Primary Care Provider + Reason for Visit * Reason Comments Med Refill Encounter Details Date Type Department Care Team ([facility] st Contact Info) Description 11/11/2024 Refill [facility] MEDICINE [address] [place], [place] [phone] Urszula Davis MD [address] [place], [place] [phone] Social History Tobacco Use Types Packs/Day Years [...] 04/19/2025 9:30 AM EST Office Visit [facility] OPTOMETRY [address] [place] [address] Octaviano, Danisha, OD [address] [place] [address] documented as of this encounter Visit Diagnoses Not on filedocumented in this encounter Additional Health Concerns Assessment Noted Time PHQ-9 Depression Total Score: 1 12/09/19 24 10:23 AM EDT documented as of this encounter Care Teams Radiographer Mammographer Relationship Specialty Start Date End Date Urszula Davis MD [address] [place] [address] PCP - General Family Medicine 06/04/17 documented as of this encounter
--- OUTSIDE RECORDS SUMMARY | 2025-02-11 11:43 | XMS_ITS | Clinical Summary ---
Author Organization [facility] it[facility] Address [address] [place] [address] Care Team Providers Care White Goods Appliance Tech Name Role Phone Unavailable Primary Care Provider Unavailabl e Social History Tobacco Use Types Packs/Day Years Used Date Smoking Tobacco: Never Assessed Sex and Gender Information Value Date Recorded Sex Assigned at Not on file Legal Sex Male 4:53 AM EST Gender Identity Not on file Sexual Orientation Not on file Plan of Treatment Health Maintenance Due Date Last Done Comments DTaP,Tdap,and Td Vaccines (1 - Tdap) 1994 Hepatitis B Vaccines (1 of 3 - 19+ 3-dose series) 1994 COVID-19 Vaccine (2023-2 5 season) 2024 Depression Screening 06/17/2024 Influenza Vaccine (#1) 2025 HIB Vaccines Aged Out No longer eligi [...] on patient's age to complete this topic MMR Vaccines Aged Out No longer eligi ble based on patient's age to complete this topic Meningococcal ACWY Vaccine Aged Out N o longer eligible based on patient's age to complete this topic Meningococcal B Vaccine Aged Out No l onger eligible based on patient's age to complete this topic Pneumococcal Vaccine: Pediat rics (0 to 5 Years) and At-Risk Patients (6 to 49 Years) Aged Out No longer eligible b ased on patient's age to complete this topic RSV Immunization Patients Un tawanna 20 months Aged Out No longer eligible b ased on patient's age to complete this topic Varicella Vaccines Aged Out No longer eligible based on patient's age to complete this topic
--- OUTSIDE RECORDS SUMMARY | 2025-02-11 11:43 | XMS_ITS | Encounter Summary ---
Author Organization [employer] Address [address] [facility] [address] [place] [address] Care Team Providers Care Home Health Clinical Liaison Name Role Phone Urszula Davis MD Primary Care Provider + Reason for Visit * Reason Onset Date Comments Nurse Triage 02/10/2025 Encounter Details Date Type Department Care Team ([facility] st Contact Info) Description 02/10/2025 Telephone [facility] MEDICINE [address] [place], [place] [phone] Urszula Davis MD [address] [place], [place] [phone] Nurse Triage Social History Tobacco Use Types Packs/Day Years [...] encounter Miscellaneous Notes * Telephone Encounter - Maddison Barba RN - 02/10/2025 11:24 AM EDT No educational sign language interpreter needed as this conventional underwriter speaks [place]. Call returned to Gilbert Richardson to triage below at [phone]. Per chart review pt has hx of chronic lumbar back pain. Per pt having Rlower back pain onset worsening x 1 day. Radiates to right leg. Having pins and needles. Pt advisedof disposition, agrees to seek [facility] for exam as no sick on site availability on teams at time of call. Reviewed [facility] operating hours and that wait times vary. Reviewed home care advise, ER precautions and reasons to call back. Protocol Used: Back Pain (Adult) Protocol-Based Disposition: See in Office or Video Visit within 3 Days Video visit offer not recorded Positive Triage Question: * Pain radiates into the thigh or further down the leg * All higher-acuity triage questions were negative Care Advice Discussed: * Reassurance and Education - Back Pain * Cold or Heat * Continue Activity * Pain Medicines * Reasons To Call Back - Severe pain not better after taking pain medicines - Moderate pain (interferes with normal activities) lasts over 3 days - Fever occurs - Numbness or weakness occurs - You become worse * Telephone Encounter - Jaylin Ellis - 02/10/2025 11:19 AM EDT Tc from pt requesting a call back regarding prior message Contact pt at [phone] (lebanese) * Telephone Encounter - Nannette Anaya RN - 02/10/2025 9:17 AM EDT Triage call with [facility] interpreter and translator ID [id number] Pt was called x2 without answer. Left voice message to call [facility] triage line at [phone] when convenient. * Telephone Encounter - Jaylin Ellis - 02/10/2025 9:04 AM EDT Symptom: Back Pain - Not From Injury Outcome: Schedule an appointment to be seen within 3 days Reason: Caller denied all higher acuity questions The caller accepted this outcome. Contact pt at [phone] (lebanese) documented in this encounter Plan of Treatment Upcoming Encounters Date Type Department Care Team (Late st Contact Info) Description 04/19/2025 9:30 AM EST Office Visit [facility] OPTOMETRY [address] [place] [address] Octaviano, Danisha, OD [address] [place] [address] documented as of this encounter Visit Diagnoses Not on filedocumented in this encounter Additional Health Concerns Assessment Noted Time PHQ-9 Depression Total Score: 1 12/09/19 24 10:23 AM EDT documented as of this encounter Care Teams Home Health Clinical Liaison Relationship Specialty Start Date End Date Urszula Davis MD [address] [place] [address] PCP - General Family Medicine 06/04/17 documented as of this encounter
--- OUTSIDE RECORDS SUMMARY | 2025-02-11 11:43 | XMS_ITS | Encounter Summary ---
Author Organization [employer] Address [address] [facility] [address] [place] [address] Care Team Providers Care Map Drafter Name Role Phone Urszula Davis MD Primary Care Provider + Encounter Details Date Type Department Care Team (Late Contact Info) Description 02/15/2023 Orders Only [facility] MED & PEDS [address] [place] [address] Aminata Moe LPN Social History Tobacco Use Types Packs/Day Years Used Date Smoking Tobacco: Never Passive Smoke Exposure: Never Smokeless Tobacco: Never Alcohol Use Standard Drinks/Week Comments Never 0 (1 standard drink = 0.6 oz pur e alcohol) Depression Answer Date Recorded Patient Health Questionnaire-9 Score 0 09/24/2022 Depression Answer Date Recorded Patient Health Questionnaire-2 Score 0 09/24/2022 Sex and Gender Information Value Date Recorded Sex Assigned at Male 04/16/2022 10:32 AM EDT Legal Sex Male 10:32 AM EDT Gender Identity Male 04/16/2022 10:32 AM EDT Sexual Orientation Straight 04/16/2022 10 :32 AM EDT documented as of this encounter Plan of Treatment Upcoming Encounters Date Type Department Care Team (Late Contact Info) Description 04/19/2025 9:30 AM EST Office Visit [facility] OPTOMETRY [address] [place], [place] [phone] Danisha Brumfield, OD [address] [place] [address] documented as of this encounter Visit Diagnoses Not on filedocumented in this encounter Additional Health Concerns Assessment Noted Time PHQ-9 Depression Total Score: 0 09/25/19 23 10:03 AM EDT documented as of this encounter Care Teams Map Drafter Relationship Specialty Start Date End Date Urszula Davis MD [address] [place] [address] PCP - General Family Medicine 06/04/17 documented as of this encounter
== END 2025-02-11 10:24 | disposition home or self-care (01) ==
LOC: HO.HHCX 10:23
PROVIDERS: Visit Provider Family Medicine
DX: M54.41 Lumbago with sciatica, right side (principal); G89.29 Other chronic pain
CPT/HCPCS: 72100

== ENCOUNTER → 2025-02-11 10:24 | Outpatient (BNV) | payer MEDICAID, SELFPAY | PROVIDERS: Visit Provider Radiology Diagnostic Radiology | DX: M47.816 Spondylosis without myelopathy or radiculopathy, lumbar region (principal) | CPT/HCPCS: 72100 ==